=== PATIENT | female | born 1940 | race Caucasian/White ===

== ENCOUNTER → 2017-01-04 | Outpatient (CLI) | payer MEDICARE, OTHER ==
--- NOTE | 2017-01-08 11:36 | MM ---
Reason for exam: screening (asymptomatic). Last mammogram was performed 1 year and 1 month ago. History: Patient is postmenopausal. Took hormonal contraceptives for 12 years. Took progesterone for 5 years. Physical Findings: A clinical breast exam by your physician is recommended on an annual basis and results should be correlated with mammographic findings. MG 3D Screening Mammo W/Cad Bilateral CC and MLO view(s) were taken. Prior study comparison: December 01, 2015, bilateral MG screening mammo w CAD. November 29, 2014, bilateral MG screening mammo w CAD. The breast tissue is heterogeneously dense. This may lower the sensitivity of mammography. Finding: There are few typically benign round calcifications in both breasts. There is no discrete abnormality. ASSESSMENT: Benign, BI-RAD 2 RECOMMENDATION: Routine screening mammogram of both breasts in 1 year.
== END ==
LOC: RADMAMWWP 07:32
PROVIDERS: ATTEND Family Medicine
DX: Z12.31 Encounter for screening mammogram for malignant neoplasm of breast (principal)
CPT/HCPCS: 77063; G0202

== ENCOUNTER → 2017-06-14 | Outpatient (CLI) | payer MEDICARE, OTHER ==
[2017-06-14 11:03] LABS: Basophils % (A) 1 %; Eosinophils # (A) 0.2 k/uL (0-0.7); Eosinophils % (A) 2 %; HCT 39.5 % (34.0-46.0); HGB 13.2 gm/dL (11.4-16.0); Lymphocytes # (A) 2.2 k/uL (1.0-4.8); Lymphocytes % (A) 28 %; MCH 29.4 pg (25.0-35.0); MCHC 33.4 g/dL (31.0-37.0); MCV 87.8 fL (80.0-100.0); Mean Platelet Volume 7.8; Monocytes # (A) 0.4 k/uL (0-1.0); Monocytes % (A) 5 %; Neutrophils # (A) 4.8 k/uL (1.3-7.7); Neutrophils % (A) 63 %; Platelet Count 346 k/uL (150-450); RDW 13.2 % (11.5-15.5); WBC 7.7 k/uL (3.8-10.6)
[2017-06-14 11:09] LABS: Calcium 9.8 mg/dL (8.4-10.2); Potassium 4.8 mmol/L (3.5-5.1)
== END | disposition home or self-care (01) ==
LOC: LABWHC1 09:54
PROVIDERS: ATTEND Family Medicine
DX: I10 Essential (primary) hypertension (principal)
CPT/HCPCS: 36415; 80048; 85025

== ENCOUNTER → 2017-06-25 | Outpatient (CLI) | payer MEDICARE, OTHER | END | disposition home or self-care (01) | LOC: RADUSWWP 10:12 | PROVIDERS: ATTEND Family Medicine | DX: I73.9 Peripheral vascular disease, unspecified (principal) | CPT/HCPCS: 93922 ==

== ENCOUNTER 2017-09-25 17:10 | Emergency (ER) | payer MEDICARE, OTHER ==
[2017-09-25] MEDS ORDERED: SODIUM CHLORIDE 0.9% 1,000 ML IV ONE (19:32)
--- NOTE | 2017-09-25 19:39 | ED ---
Nausea/Vomiting/Diarrhea HPI - General Chief complaint: Nausea/Vomiting/Diarrhea Stated complaint: Diarrhea Time Seen by Provider: 09/25/17 19:13 Source: patient Mode of arrival: ambulatory Limitations: no limitations - History of Present Illness Initial comments: 76-year-old female patient presents to the emergency department today for evaluation of diarrhea and leg pain. Patient states that she has had several episodes of diarrhea daily for the last 3 days. Patient states that she has had generalized abdominal cramping but the pain is worse over the left lower quadrant. She states that whenever she eats or drinks anything she immediately has to have a bowel movement. She denies any hematochezia or melena. Denies any nausea or vomiting. States that she is feeling fatigued and weak. States that she has been having leg pain radiating from her knees down for the last 2 weeks. Patient states that she did previously have similar pain to this did have arterial and venous studies which were negative. States that the pain stopped after stopping amlodipine however started again when she began taking hydrochlorothiazide. Patient states that her blood pressures have been running at normal to high. She denies any recent travel or sick contacts. She denies any recent antibiotic use. Does have a history of diverticulitis but the last episode was many years ago. Has had a cholecystectomy. Patient denies any recent rash, fever, shortness breath, chest pain, back pain, numbness, tingling , dizziness, weakness, hematuria, dysuria, urinary urgency, urinary frequency, headache, visual changes, or any other complaints. - Related Data Home Medications Medication Instructions Recorded Confirmed Aspirin [Adult Low Dose Aspirin EC] 81 mg PO HS 06/13/15 09/25/17 Ca/D3/Mag/Zinc/Candy/Ramirez/Mgbor 1 tab PO DAILY 06/13/15 09/25/17 [Caltrate 600+D3+Min Chew Tab] Lisinopril [Zestril] 20 mg PO BID 06/13/15 09/25/17 Multivit-Min/FA/Lycopen/Lutein 1 tab PO DAILY 06/13/15 09/25/17 [Centrum Silver Tablet] Brimonidine Tartrate/Timolol 1 drop BOTH EYES BID 09/25/17 09/25/17 [Combigan 0.2%-0.5% Eye Drops] Carboxymethylcellulose Sodium 1 - 2 drops BOTH EYES TID PRN 09/25/17 09/25/17 [Refresh Tears] Hydrochlorothiazide 25 mg PO DAILY 09/25/17 09/25/17 Ranitidine HCl 150 mg PO BID PRN 09/25/17 09/25/17 Previous Rx's Medication Instructions Recorded Loperamide [Imodium] 2 mg PO Q6H PRN #8 capsule 09/25/17 Allergies Allergy/AdvReac Type Severity Reaction Status Date / Time Penicillins Allergy Anaphylaxis Verified 09/25/17 19:42 Review of Systems ROS Statement: Those systems with pertinent positive or pertinent negative responses have been documented in the HPI. ROS Other: All systems not noted in ROS Statement are negative. Past Medical History Past Medical History: Hypertension Additional Past Medical History / Comment(s): HX OF POLYPS History of Any Multi-Drug Resistant Organisms: None Reported Past Surgical History: Cholecystectomy, Tubal Ligation Past Anesthesia/Blood Transfusion Reactions: No Reported Reaction Past Psychological History: No Psychological Hx Reported Smoking Status: Former smoker Past Alcohol Use History: None Reported Past Drug Use History: None Reported General Exam Limitations: no limitations General appearance: alert, in no apparent distress, other (This is a well- developed, well-nourished elderly female patient in no acute distress. Vital signs upon presentation are temperature 97.7F, pulse 88, respirations 16, blood pressure 154/79, pulse ox 99% on room air.) Eye exam: Present: normal appearance, PERRL, EOMI. Absent: scleral icterus, conjunctival injection, periorbital swelling ENT exam: Present: normal exam, normal oropharynx, mucous membranes moist Respiratory exam: Present: normal lung sounds bilaterally. Absent: respiratory distress, wheezes, rales, rhonchi, stridor Cardiovascular Exam: Present: regular rate, normal rhythm, normal heart sounds. Absent: systolic murmur, diastolic murmur, rubs, gallop, clicks GI/Abdominal exam: Present: soft, tenderness (Mild left lower quadrant tenderness), normal bowel sounds. Absent: distended, guarding, rebound, rigid Extremities exam: Present: normal inspection, full ROM, normal capillary refill , other (Skin to the lower extremities pink, warm, and dry. Cap refills less than 3 seconds. Pedal posterior tibial pulses are 2+ and equal bilaterally. There is no swelling.). Absent: tenderness, pedal edema, joint swelling, calf tenderness Neurological exam: Present: alert, oriented X3, CN II-XII intact Psychiatric exam: Present: normal affect, normal mood Skin exam: Present: warm, dry, intact, normal color. Absent: rash Course Vital Signs 09/25/17 09/25/17 17:21 22:53 Temperature 97.7 F 98.2 F Pulse Rate 88 80 Respiratory 16 18 Rate Blood Pressure 154/79 171/76 O2 Sat by Pulse 99 96 Oximetry Medical Decision Making - Medical Decision Making 76-year-old female patient presents to emergency department today for evaluation of diarrhea 3 days and leg pain. Physical examination does reveal some left lower quadrant abdominal tenderness. Labs reviewed and did show a decreased sodium and chloride also showed elevated BUN at 26 and creatinine at 1.34. Patient was given a liter of normal saline for dehydration. Urinalysis was negative for any acute signs of infection. I did discuss results and findings with the patient. It is felt that she does have a viral enteritis. She will be given a dose of Imodium here in the department to help control her symptoms. She is instructed take these sparingly. She is instructed to increase fluids and start with a bland diet and advance as tolerated. She is instructed follow up with her primary care physician for recheck as soon as possible. Return parameters discussed in detail. She verbalizes understanding and agrees with this plan. - Lab Data Result diagrams: 09/25/17 19:49 09/25/17 19:49 Lab Results 09/25/17 09/25/17 09/25/17 Range/Units 19:49 19:49 21:34 WBC 8.2 (3.8-10.6) k/uL RBC 4.71 (3.80-5.40) m/uL Hgb 13.8 (11.4-16.0) gm/dL Hct 39.6 (34.0-46.0) % MCV 84.2 (80.0-100.0) fL MCH 29.3 (25.0-35.0) pg MCHC 34.8 (31.0-37.0) g/dL RDW 13.2 (11.5-15.5) % Plt Count 382 (150-450) k/uL Neutrophils % 63 % Lymphocytes % 26 % Monocytes % 8 % Eosinophils % 1 % Basophils % 0 % Neutrophils # 5.1 (1.3-7.7) k/uL Lymphocytes # 2.2 (1.0-4.8) k/uL Monocytes # 0.6 (0-1.0) k/uL Eosinophils # 0.1 (0-0.7) k/uL Basophils # 0.0 (0-0.2) k/uL Sodium 132 L (137-145) mmol/L Potassium 4.3 (3.5-5.1) mmol/L Chloride 91 L (98-107) mmol/L Carbon Dioxide 26 (22-30) mmol/L Anion Gap 15 mmol/L BUN 26 H (7-17) mg/dL Creatinine 1.34 H (0.52-1.04) mg/dL Est GFR (CKD-EPI)AfAm 45 (>60 ml/min/1.73 sqM) Est GFR (CKD-EPI)NonAf 39 (>60 ml/min/1.73 sqM) Glucose 106 H (74-99) mg/dL Calcium 9.8 (8.4-10.2) mg/dL Magnesium 1.6 (1.6-2.3) mg/dL Total Bilirubin 0.5 (0.2-1.3) mg/dL AST 32 (14-36) U/L ALT 34 (9-52) U/L Alkaline Phosphatase 91 (38-126) U/L Total Protein 7.5 (6.3-8.2) g/dL Albumin 4.7 (3.5-5.0) g/dL Urine Color Light Yellow Urine Appearance Clear (Clear) Urine pH 5.0 (5.0-8.0) Ur Specific [place] 1.005 (1.001-1.035) Urine Protein Negative (Negative) Urine Glucose (UA) Negative (Negative) Urine Ketones Trace H (Negative) Urine Blood Negative (Negative) Urine Nitrite Negative (Negative) Urine Bilirubin Negative (Negative) Urine Urobilinogen <2.0 (<2.0) mg/dL Ur Leukocyte Esterase Large H (Negative) Urine RBC 1 (0-5) /hpf Urine WBC 32 H (0-5) /hpf Ur Squamous Epith Cells <1 (0-4) /hpf Ur Renal Epithelial Cell <1 (0) /hpf Hyaline Casts 1 (0-2) /lpf Urine Mucus Rare H (None) /hpf - Radiology Data Radiology results: report reviewed, image reviewed CT of the abdomen and pelvis without contrast was obtained given the patient's current renal status. Report was reviewed in its entirety. Impression by Dr. Elizondo shows no evidence of diverticulitis. No sign of acute abdomen and pelvis. Disposition Clinical Impression: Dehydration, Diarrhea, Renal insufficiency Disposition: HOME SELF-CARE Condition: Good Instructions: Dehydration (ED), Chronic Kidney Disease (ED), Acute Diarrhea (ED ) Additional Instructions: Take Imodium as directed. Increase fluids, start with a bland diet and advance as tolerated. Follow-up with your primary care physician as soon as possible. Have your kidney function rechecked. Return here immediately for any new, worsening, or concerning symptoms. Prescriptions: Loperamide [Imodium] 2 mg PO Q6H PRN #8 capsule PRN Reason: Diarrhea Is patient prescribed a controlled substance at d/c from ED?: No Referrals: Ranjit Jessica DO [Primary Care Provider] - 1-2 days Time of Disposition: 22:26
[2017-09-25 20:04] LABS: Basophils % (A) 0 %; Eosinophils # (A) 0.1 k/uL (0-0.7); Eosinophils % (A) 1 %; HCT 39.6 % (34.0-46.0); HGB 13.8 gm/dL (11.4-16.0); Lymphocytes # (A) 2.2 k/uL (1.0-4.8); Lymphocytes % (A) 26 %; MCH 29.3 pg (25.0-35.0); MCHC 34.8 g/dL (31.0-37.0); MCV 84.2 fL (80.0-100.0); Monocytes # (A) 0.6 k/uL (0-1.0); Monocytes % (A) 8 %; Neutrophils # (A) 5.1 k/uL (1.3-7.7); Neutrophils % (A) 63 %; Platelet Count 382 k/uL (150-450); RBC 4.71 m/uL (3.80-5.40); RDW 13.2 % (11.5-15.5); WBC 8.2 k/uL (3.8-10.6)
[2017-09-25 20:10] LABS: Albumin 4.7 g/dL (3.5-5.0); Calcium 9.8 mg/dL (8.4-10.2); Magnesium 1.6 mg/dL (1.6-2.3); Potassium 4.3 mmol/L (3.5-5.1); Total Bilirubin 0.5 mg/dL (0.2-1.3); Total Protein 7.5 g/dL (6.3-8.2)
--- NOTE | 2017-09-25 21:03 | CT ---
EXAMINATION TYPE: CT abdomen pelvis wo con DATE OF EXAM: 09/25/2017 COMPARISON: NONE HISTORY: Diarrhea x 2 1/[address] DLP: 352.2 mGycm Automated exposure control for dose reduction was used. TECHNIQUE: Helical acquisition of images was performed from the lung bases through the pelvis. FINDINGS: The lung bases are clear. There is no pleural effusion. Heart size is normal. There is no pericardial effusion. Liver and spleen appear normal. Bile ducts are not dilated. There are clips from cholecystectomy. The re is no evidence of pancreatic mass. There is no adrenal mass. Kidneys of normal size. There is no h ydronephrosis. Ureters are not dilated. There is no retroperitoneal adenopathy. Bladder distends smoo thly. There are some sigmoid diverticula. There is no evidence of diverticulitis. I see no intestinal wall thickening. There are no dilated loops. There is a mild degenerative first-degree L4-5 spondylo listhesis. I see no bony destructive process. Uterus is anteverted. Appendix is not definitely seen. There is no sign of appendicitis. OTHER: Mild sigmoid diverticulosis. No evidence of diverticulitis. No sign of acute abdomen and pelvi s. IMPRESSION:
[2017-09-25 21:56] LABS: Appearance,Urine Clear (Clear); Bilirubin,Urine Negative (Negative); Blood,Urine Negative (Negative); Color,Urine Light Yellow; Glucose,Urine (UA) Negative (Negative); Hyaline Casts,Urine 1 /lpf (0-2); Ketones,Urine Trace (Negative); Leukocyte Esterase,Urine Large (Negative); Mucus,Urine Rare /hpf; Nitrite,Urine Negative (Negative); Protein,Urine Negative (Negative); RBC,Urine 1 /hpf (0-5); Renal Epithelial Cells,Urine <1 /hpf (0); Specific Gravity,Urine 1.005 (1.001-1.035); Squamous Epithelial Cell,Urine <1 /hpf (0-4); Urobilinogen,Urine <2.0 mg/dL (<2.0); WBC,Urine 32 /hpf (0-5)
[2017-09-25] MEDS ORDERED: LOPERAMIDE 2 MG CAP PO STA (22:24)
[2017-09-25 22:54] VITALS: BP 171/76; PULSE 80; RESP 18; TEMP 98.2
== END 2017-09-25 22:53 | disposition home or self-care (01) ==
LOC: EC 17:10
DX: E86.0 Dehydration (principal); N28.9 Disorder of kidney and ureter, unspecified; R19.7 Diarrhea, unspecified; M79.604 Pain in right leg; M79.605 Pain in left leg; I10 Essential (primary) hypertension; Z90.49 Acquired absence of other specified parts of digestive tract; Z98.51 Tubal ligation status; Z87.891 Personal history of nicotine dependence; Z79.82 Long term (current) use of aspirin; Z79.899 Other long term (current) drug therapy; Z88.0 Allergy status to penicillin; Z87.19 Personal history of other diseases of the digestive system
CPT/HCPCS: 36415; 74176; 80053; 81001; 83735; 85025; 87086; 96360; 99284

== ENCOUNTER → 2017-10-18 | Outpatient (CLI) | payer MEDICARE, OTHER ==
--- NOTE | 2017-10-18 10:38 | XR ---
EXAMINATION TYPE: XR chest 2V DATE OF EXAM: 10/18/2017 COMPARISON: 10/17/2015 HISTORY: Shortness of breath TECHNIQUE: Frontal and lateral views of the chest are obtained. FINDINGS: Scattered senescent parenchymal changes noted. Hyperinflation compatible with COPD. No evidence for infiltrate. No evidence for atelectasis. Heart size is stable. Mediastinal structures are stable and grossly unremarkable. No evidence for hilar prominence. Degenerative changes dorsal spine. IMPRESSION: 1. No evidence for acute pulmonary disease.
== END | disposition home or self-care (01) ==
LOC: RADXRMAIN 10:12
PROVIDERS: ATTEND Family Medicine
DX: R06.00 Dyspnea, unspecified (principal)
CPT/HCPCS: 71046

== ENCOUNTER 2017-10-26 11:53 | Inpatient (IN) | payer MEDICARE, OTHER ==
[2017-10-26] MEDS ORDERED: IPRATROPIUM-ALBUTEROL 3 ML NEB INHALATION STA (12:10)
[2017-10-26 12:52] LABS: Basophils % (A) 0 %; Eosinophils # (A) 0.1 k/uL (0-0.7); Eosinophils % (A) 1 %; HCT 34.7 % (34.0-46.0); HGB 12.2 gm/dL (11.4-16.0); Lymphocytes % (A) 29 %; MCH 29.3 pg (25.0-35.0); MCHC 35.2 g/dL (31.0-37.0); MCV 83.2 fL (80.0-100.0); Monocytes # (A) 0.6 k/uL (0-1.0); Monocytes % (A) 8 %; Neutrophils # (A) 4.2 k/uL (1.3-7.7); Neutrophils % (A) 60 %; Platelet Count 370 k/uL (150-450); RBC 4.17 m/uL (3.80-5.40); RDW 13.2 % (11.5-15.5)
[2017-10-26 13:01] LABS: INR 1.1 (<1.2); Partial Thromboplastin Time 24.3 sec (22.0-30.0); Prothrombin Time 10.4 sec (9.0-12.0)
[2017-10-26 13:02] LABS: Albumin 4.4 g/dL (3.5-5.0); Calcium 9.3 mg/dL (8.4-10.2); Magnesium 1.7 mg/dL (1.6-2.3); Potassium 4.3 mmol/L (3.5-5.1); Total Bilirubin 0.4 mg/dL (0.2-1.3); Total Protein 6.7 g/dL (6.3-8.2)
[2017-10-26] MEDS ORDERED: SODIUM CHLORIDE 0.9% 1,000 ML IV STA ×2 (13:03)
[2017-10-26 13:14] LABS: Creatine Kinase 181 U/L (30-135)
[2017-10-26 13:27] LABS: Creatine Kinase MB 2.4 ng/mL (0.0-2.4); Troponin I <0.012 ng/mL (0.000-0.034)
--- NOTE | 2017-10-26 13:49 | ED ---
General Adult HPI - General Chief complaint: Shortness of Breath Stated complaint: Difficulty Breathing Time Seen by Provider: 10/26/17 12:09 Source: patient, RN notes reviewed, old records reviewed Mode of arrival: ambulatory Limitations: no limitations - History of Present Illness Initial comments: This is a 76-year-old female the ER for evaluation. Patient has multiple complaints all surrounding shortness of breath fatigue and inability to eat or drink. Patient is a 10 pound weight loss. Patient has history of high blood pressure but none really any other specific medical history. Patient has no new medications. She was a viral infection that suicide for some time. Patient states that infection is now resolved. She denies any diarrheal recently a diarrheal illness. Patient states her main complaint is inability to breathe, inability to breathe in length that flat and decreased activity level during events or activities. Patient denies any recurrent fevers currently no travel history or sick contacts - Related Data Home Medications Medication Instructions Recorded Confirmed Aspirin [Adult Low Dose Aspirin EC] 81 mg PO HS 06/13/15 09/25/17 Ca/D3/Mag/Zinc/Candy/Ramirez/Mgbor 1 tab PO DAILY 06/13/15 09/25/17 [Caltrate 600+D3+Min Chew Tab] Lisinopril [Zestril] 20 mg PO BID 06/13/15 09/25/17 Multivit-Min/FA/Lycopen/Lutein 1 tab PO DAILY 06/13/15 09/25/17 [Centrum Silver Tablet] Brimonidine Tartrate/Timolol 1 drop BOTH EYES BID 09/25/17 09/25/17 [Combigan 0.2%-0.5% Eye Drops] Carboxymethylcellulose Sodium 1 - 2 drops BOTH EYES TID PRN 09/25/17 09/25/17 [Refresh Tears] Hydrochlorothiazide 25 mg PO DAILY 09/25/17 09/25/17 Ranitidine HCl 150 mg PO BID PRN 09/25/17 09/25/17 Previous Rx's Medication Instructions Recorded Loperamide [Imodium] 2 mg PO Q6H PRN #8 capsule 09/25/17 Allergies Allergy/AdvReac Type Severity Reaction Status Date / Time Penicillins Allergy Anaphylaxis Verified 10/26/17 12:01 Review of Systems ROS Statement: Those systems with pertinent positive or pertinent negative responses have been documented in the HPI. ROS Other: All systems not noted in ROS Statement are negative. Past Medical History Past Medical History: Hypertension Additional Past Medical History / Comment(s): HX OF POLYPS History of Any Multi-Drug Resistant Organisms: None Reported Past Surgical History: Cholecystectomy, Tubal Ligation Past Anesthesia/Blood Transfusion Reactions: No Reported Reaction Past Psychological History: No Psychological Hx Reported Smoking Status: Former smoker Past Alcohol Use History: None Reported Past Drug Use History: None Reported General Exam Limitations: no limitations General appearance: alert, in no apparent distress Head exam: Present: atraumatic, normocephalic, normal inspection Eye exam: Present: normal appearance, PERRL, EOMI. Absent: scleral icterus, conjunctival injection, periorbital swelling ENT exam: Present: normal exam, mucous membranes moist Neck exam: Present: normal inspection. Absent: tenderness, meningismus, lymphadenopathy Respiratory exam: Present: normal lung sounds bilaterally. Absent: respiratory distress, wheezes, rales, rhonchi, stridor Cardiovascular Exam: Present: regular rate, normal rhythm, normal heart sounds. Absent: systolic murmur, diastolic murmur, rubs, gallop, clicks GI/Abdominal exam: Present: soft, normal bowel sounds. Absent: distended, tenderness, guarding, rebound, rigid Extremities exam: Present: normal inspection, full ROM, normal capillary refill. Absent: tenderness, pedal edema, joint swelling, calf tenderness Back exam: Present: normal inspection Neurological exam: Present: alert, oriented X3, CN II-XII intact Psychiatric exam: Present: normal affect, normal mood Skin exam: Present: warm, dry, intact, normal color. Absent: rash Course Vital Signs 10/26/17 10/26/17 10/26/17 11:57 13:30 13:40 Temperature 97.6 F Pulse Rate 76 73 69 Respiratory 18 Rate Blood Pressure 149/74 O2 Sat by Pulse 100 Oximetry 10/26/17 14:51 Temperature Pulse Rate 76 Respiratory 16 Rate Blood Pressure 159/70 O2 Sat by Pulse 100 Oximetry - Reevaluation(s) Reevaluation #1: 10/26/17 15:24 Significant improvement here in the emergency room EKG Findings - EKG Comments: EKG Findings:: EKG shows normal sinus rhythm rate of 69, [place] 04/13/1982, QRS 70, QTc 420 Medical Decision Making - Medical Decision Making 76 female the ER for eversion multiple nonspecific complaints, patient is hyponatremic sodium 121, weak and short of breath. Likely just malnutrition. Patient will be admitted for IV resuscitation and further evaluation, - Lab Data Result diagrams: 10/26/17 12:43 10/26/17 12:43 Lab Results 10/26/17 10/26/17 10/26/17 Range/Units 12:43 12:43 12:43 WBC 7.0 (3.8-10.6) k/uL RBC 4.17 (3.80-5.40) m/uL Hgb 12.2 (11.4-16.0) gm/dL Hct 34.7 (34.0-46.0) % MCV 83.2 (80.0-100.0) fL MCH 29.3 (25.0-35.0) pg MCHC 35.2 (31.0-37.0) g/dL RDW 13.2 (11.5-15.5) % Plt Count 370 (150-450) k/uL Neutrophils % 60 % Lymphocytes % 29 % Monocytes % 8 % Eosinophils % 1 % Basophils % 0 % Neutrophils # 4.2 (1.3-7.7) k/uL Lymphocytes # 2.0 (1.0-4.8) k/uL Monocytes # 0.6 (0-1.0) k/uL Eosinophils # 0.1 (0-0.7) k/uL Basophils # 0.0 (0-0.2) k/uL PT (9.0-12.0) sec INR (<1.2) APTT (22.0-30.0) sec Sodium 121 L (137-145) mmol/L Potassium 4.3 (3.5-5.1) mmol/L Chloride 84 L (98-107) mmol/L Carbon Dioxide 25 (22-30) mmol/L Anion Gap 12 mmol/L BUN 53 H (7-17) mg/dL Creatinine 1.23 H (0.52-1.04) mg/dL Est GFR (CKD-EPI)AfAm 50 (>60 ml/min/1.73 sqM) Est GFR (CKD-EPI)NonAf 43 (>60 ml/min/1.73 sqM) Glucose 94 (74-99) mg/dL Calcium 9.3 (8.4-10.2) mg/dL Magnesium 1.7 (1.6-2.3) mg/dL Total Bilirubin 0.4 (0.2-1.3) mg/dL AST 34 (14-36) U/L ALT 30 (9-52) U/L Alkaline Phosphatase 72 (38-126) U/L Total Creatine Kinase 181 H (30-135) U/L CK-MB (CK-2) 2.4 (0.0-2.4) ng/mL CK-MB (CK-2) Rel Index 1.3 Troponin I <0.012 (0.000-0.034) ng/mL NT-Pro-B Natriuret Pep pg/mL Total Protein 6.7 (6.3-8.2) g/dL Albumin 4.4 (3.5-5.0) g/dL 10/26/17 10/26/17 Range/Units 12:43 12:43 WBC (3.8-10.6) k/uL RBC (3.80-5.40) m/uL Hgb (11.4-16.0) gm/dL Hct (34.0-46.0) % MCV (80.0-100.0) fL MCH (25.0-35.0) pg MCHC (31.0-37.0) g/dL RDW (11.5-15.5) % Plt Count (150-450) k/uL Neutrophils % % Lymphocytes % % Monocytes % % Eosinophils % % Basophils % % Neutrophils # (1.3-7.7) k/uL Lymphocytes # (1.0-4.8) k/uL Monocytes # (0-1.0) k/uL Eosinophils # (0-0.7) k/uL Basophils # (0-0.2) k/uL PT 10.4 (9.0-12.0) sec INR 1.1 (<1.2) APTT 24.3 (22.0-30.0) sec Sodium (137-145) mmol/L Potassium (3.5-5.1) mmol/L Chloride (98-107) mmol/L Carbon Dioxide (22-30) mmol/L Anion Gap mmol/L BUN (7-17) mg/dL Creatinine (0.52-1.04) mg/dL Est GFR (CKD-EPI)AfAm (>60 ml/min/1.73 sqM) Est GFR (CKD-EPI)NonAf (>60 ml/min/1.73 sqM) Glucose (74-99) mg/dL Calcium (8.4-10.2) mg/dL Magnesium (1.6-2.3) mg/dL Total Bilirubin (0.2-1.3) mg/dL AST (14-36) U/L ALT (9-52) U/L Alkaline Phosphatase (38-126) U/L Total Creatine Kinase (30-135) U/L CK-MB (CK-2) (0.0-2.4) ng/mL CK-MB (CK-2) Rel Index Troponin I (0.000-0.034) ng/mL NT-Pro-B Natriuret Pep 111 pg/mL Total Protein (6.3-8.2) g/dL Albumin (3.5-5.0) g/dL - Radiology Data Radiology results: report reviewed (CT soft tissue neck CT chest negative for acute disease), image reviewed Disposition Clinical Impression: Hyponatremia, Weakness Disposition: ADMITTED IP TO THIS [facility] Condition: Fair Is patient prescribed a controlled substance at d/c from ED?: No Referrals: Ranjit Jessica DO [Primary Care Provider] - 1-2 days
[2017-10-26 14:52] VITALS: RESP 16
--- NOTE | 2017-10-26 14:57 | CT ---
EXAMINATION TYPE: CT angio chest DATE OF EXAM: 10/26/2017 2:41 PM COMPARISON: HISTORY: SOB, can not lay flat or she chokes CT DLP: 371.1 (soft tissue neck and CTA chest) mGycm Automated exposure control for dose reduction was used. CONTRAST: CTA scan of the thorax is performed with IV Contrast, patient injected with 80 mL of Isovue 370, pulm onary embolism protocol. . FINDINGS: LUNGS: The lungs are mildly hyperexpanded without acute parenchymal infiltrate, pneumothorax or pleur al effusions. There is peribronchial thickening. The tracheobronchial tree is patent. MEDIASTINUM: There is suboptimal enhancement of the pulmonary artery and its branches, there is no CT evidence of filling defects within the main pulmonary artery. There are no greater than 1 cm hilar or mediastinal lymph nodes. No pericardial effusion is seen. OTHER: No evidence of axillary or mediastinal adenopathy. IMPRESSION: SUBOPTIMAL OPACIFICATION OF THE PULMONARY ARTERIES. NO EVIDENCE OF MAJOR FILLING DEFECTS WITHIN THE M AIN PULMONARY ARTERY. BOTH LUNGS ARE HYPEREXPANDED WITH PERIBRONCHIAL THICKENING WITHOUT PNEUMOTHORAX OR PLEURAL EFFUSIONS. NO DEFINITE ACUTE PARENCHYMAL INFILTRATE. THORACIC AORTA IS OF NORMAL SIZE.
--- NOTE | 2017-10-26 15:13 | CT ---
EXAMINATION TYPE: CT soft tissue neck w con DATE OF EXAM: 10/26/2017 3:02 PM COMPARISON: HISTORY: SOB, chokes when she lays flat CT DLP: 371.1 (soft tissue neck and CTA chest) mGycm Automated exposure control for dose reduction was used. CONTRAST: CT scan of the neck is performed following with IV Contrast, patient injected with 80 mL of Isovue 37 0. Axial images are obtained, coronal and sagittal reformatted images are reviewed. FINDINGS: Airway: No gross abnormality seen. Parotid/submandibular glands: No gross abnormality seen. Carotid/Vascular Structures: Patency of both carotid bifurcations with moderate tortuosity of the cer vical portion of both internal carotid arteries. Osseous Structures: Minimal loss of height and intervertebral disc spaces of the cervical spine. No c ompression fracture or focal bony destruction.. Other: Multiple artifacts from dental fillings. No definite cervical adenopathy. Epiglottis is of nor mal size. No intracranial mass. Visualized portions of the lung apices are clear. IMPRESSION: No evidence of adenopathy or airway obstruction. Moderate proportions of the internal ca rotid arteries bilaterally. Patency of both carotid bifurcations. Loss of height at the intervertebra l disc spaces of the cervical spine with osteoarthritic changes. No compression fractures or focal jimmy ne destruction.
[2017-10-26] MEDS ORDERED: SODIUM CHLORIDE 0.9% 1,000 ML IV ONE (15:22)
[2017-10-26] MEDS ORDERED: SODIUM CHLORIDE 0.9% 500 ML IV STA (15:22)
[2017-10-26 16:49] VITALS: BMI 26.4
[2017-10-26] MEDS ORDERED: FAMOTIDINE 20 MG TAB PO PRN (18:20)
[2017-10-26] MEDS ORDERED: ARTIFICIAL TEARS-HYPROMELLOSE DROPS 15 ML BTL BOTH EYES PRN (18:20)
[2017-10-26] MEDS: SODIUM CHLORIDE 0.9% 1,000 ML IV SCH (18:52)
--- NOTE | 2017-10-26 18:53 | P.HPIM ---
History of Present Illness 71-year-old female poor historian not exactly sure why she came to the hospital she is she is fatigued because of which she came to the hospital sometimes she says she is started about the pressure came to the hospital. Patient has a recent prolonged history of having diarrhea for which patient underwent extensive elevation at CAT scan of the abdomen which was essentially within normal limits patient was subsequently discharged home, her primary care patient advance her diet from liquid diet to soft diet patient is able to tolerate the diet patient has been tired lately because of which patient came to ER patient apparently was complaining of shortness of breath all the workup for shortness of breath is essentially negative. Patient denied any fever chills patient had any present diarrhea patient is found to be hyponatremic with the serum sodium of 121 and acute renal failure. Patient is on hydro- chlorothiazide and also lisinopril at home both of which will be held. Review of Systems REVIEW OF SYSTEMS: CONSTITUTIONAL: No fever, no malaise, HEENT: No recent visual problems or hearing problems. Denied any sore throat. CARDIOVASCULAR: No chest pain, orthopnea, PND, no palpitations, no syncope. PULMONARY:no cough, no hemoptysis. GASTROINTESTINAL: No diarrhea, no nausea, no vomiting, no abdominal pain. Normoactive bowel sounds. NEUROLOGICAL: No headaches, no weakness, no numbness. HEMATOLOGICAL: Denies any bleeding or petechiae. GENITOURINARY: Denies any burning micturition, frequency, or urgency. MUSCULOSKELETAL/RHEUMATOLOGICAL: Denies any joint pain, swelling, or any muscle pain. ENDOCRINE: Denies any polyuria or polydipsia. The rest of the 14-point review of systems is negative. Past Medical History Past Medical History: Hypertension Additional Past Medical History / Comment(s): HX OF POLYPS History of Any Multi-Drug Resistant Organisms: None Reported Past Surgical History: Cholecystectomy, Tubal Ligation Past Anesthesia/Blood Transfusion Reactions: No Reported Reaction Past Psychological History: No Psychological Hx Reported Smoking Status: Former smoker Past Alcohol Use History: None Reported Additional Past Alcohol Use History / Comment(s): SMOKED FOR LESS THAN 2 YRS IN 20'S, LESS THAN 1PPD Past Drug Use History: None Reported - Past Family History Father Additional Family Medical History / Comment(s): osteoporosis Mother Family Medical History: CVA/TIA Medications and Allergies Home Medications Medication Instructions Recorded Confirmed Type Aspirin [Adult Low Dose Aspirin EC] 81 mg PO HS 06/13/15 10/26/17 History Ca/D3/Mag/Zinc/Candy/Ramirez/Mgbor 1 tab PO DAILY 06/13/15 10/26/17 History [Caltrate 600+D3+Min Chew Tab] Lisinopril [Zestril] 20 mg PO BID 06/13/15 10/26/17 History Multivit-Min/FA/Lycopen/Lutein 1 tab PO DAILY 06/13/15 10/26/17 History [Centrum Silver Tablet] Brimonidine Tartrate/Timolol 1 drop BOTH EYES BID 09/25/17 10/26/17 History [Combigan 0.2%-0.5% Eye Drops] Carboxymethylcellulose Sodium 1 - 2 drops BOTH EYES TID PRN 09/25/17 10/26/17 History [Refresh Tears] Hydrochlorothiazide 25 mg PO DAILY 09/25/17 10/26/17 History Ranitidine HCl 150 mg PO BID PRN 09/25/17 10/26/17 History Allergies Allergy/AdvReac Type Severity Reaction Status Date / Time Penicillins Allergy Anaphylaxis Verified 10/26/17 16:54 Physical Exam Vitals: Vital Signs Temp Pulse Resp BP Pulse Ox 10/26/17 16:16 97.9 F 10/26/17 15:27 86 16 139/70 98 10/26/17 14:51 76 16 159/70 100 10/26/17 13:40 69 10/26/17 13:30 73 10/26/17 11:57 97.6 F 76 18 149/74 100 Intake and Output 10/26/17 10/26/17 10/26/17 06:59 14:59 22:59 Other: Weight 64.229 kg 63.6 kg PHYSICAL EXAMINATION: GENERAL: The patient is alert and oriented x3, not in any acute distress. Well developed, well nourished. HEENT: Pupils are round and equally reacting to light. EOMI. No scleral icterus. No conjunctival pallor. Normocephalic, atraumatic. No pharyngeal erythema. No thyromegaly. CARDIOVASCULAR: S1 and S2 present. No murmurs, rubs, or gallops. PULMONARY: Chest is clear to auscultation, no wheezing or crackles. ABDOMEN: Soft, nontender, nondistended, normoactive bowel sounds. No palpable organomegaly. MUSCULOSKELETAL: No joint swelling or deformity. EXTREMITIES: No cyanosis, clubbing, or pedal edema. NEUROLOGICAL: Gross neurological examination did not reveal any focal deficits. SKIN: No rashes. Results CBC & Chem 7: 10/26/17 12:43 10/26/17 12:43 Labs: Abnormal Lab Results - Last 24 Hours (Table) 10/26/17 10/26/17 Range/Units 12:43 12:43 Sodium 121 L (137-145) mmol/L Chloride 84 L (98-107) mmol/L BUN 53 H (7-17) mg/dL Creatinine 1.23 H (0.52-1.04) mg/dL Total Creatine Kinase 181 H (30-135) U/L Thrombosis Risk Factor Assmnt - Choose All That Apply Any of the Below Risk Factors Present?: Yes Other Risk Factors: Yes Each Risk Factor Represents 2 Points: Age 61-74 years Other congenital or acquired thrombophilia - If yes, enter type in comment: Yes Thrombosis Risk Factor Assessment Total Risk Factor Score: 2 Thrombosis Risk Factor Assessment Level: Low Risk Assessment and Plan Plan: -Hyponatremia: Hypovolemic hyponatremia from recent diarrhea along with hydrocodone thiazide adequately presented will be held and patient continued on IV fluids -Acute renal failure: Hold a slight lisinopril IV fluids -Generalized headache may be related to dehydration intravascularly depletion and acute renal failure and hyponatremia I will obtain TSH levels -Shortness of breath ruled out pneumonia etiology is unknown probably psychological -Hypertension cardiac diet hold off on antidepressant medications for above- mentioned reasons temporaryly
[2017-10-26] MEDS: BRIMONIDINE TARTRATE 0.2% DROPS 5 ML BTL BOTH EYES SCH (20:56)
[2017-10-26] MEDS: TIMOLOL 0.5% OPHTH DROPS 5 ML BTL BOTH EYES SCH (20:56)
[2017-10-26] MEDS ORDERED: ASPIRIN 81 MG PO SCH (21:00)
[2017-10-27] MEDS: SODIUM CHLORIDE 0.9% 1,000 ML IV SCH (05:48)
[2017-10-27 06:29] VITALS: PULSE 69; TEMP 97.1
[2017-10-27 07:34] VITALS: BP 187/68
[2017-10-27] MEDS ORDERED: ENOXAPARIN 40 MG/0.4 ML SYRINGE SQ SCH (09:00)
[2017-10-27] MEDS ORDERED: LISINOPRIL 20 MG TAB PO SCH (09:00)
[2017-10-27] MEDS ORDERED: HYDROCHLOROTHIAZIDE 25 MG TAB PO SCH (09:00)
[2017-10-27] MEDS: BRIMONIDINE TARTRATE 0.2% DROPS 5 ML BTL BOTH EYES SCH (09:21)
[2017-10-27] MEDS: TIMOLOL 0.5% OPHTH DROPS 5 ML BTL BOTH EYES SCH (09:21)
[2017-10-27 09:28] LABS: Potassium 4.4 mmol/L (3.5-5.1)
--- NOTE | 2017-10-27 11:44 | P.DS ---
Providers Date of admission: 10/26/17 15:23 Attending physician: Amanda Ulloa Primary care physician: Ranjit [facility] Course: 77-year-old female was admitted secondary to hyponatremia which improved with IV fluids and hyponatremia secondary to hydrochlorothiazide which was discontinued. Patient also had acute renal failure improved with discontinuation of hydrochlorothiazide and lisinopril. Creatinine improved to 0.8 and patient will be discharged home on lisinopril 20 mg daily and patient is asked to check the blood pressure at home. PHYSICAL EXAMINATION: GENERAL: The patient is alert and oriented x3, not in any acute distress. Well developed, well nourished. HEENT: Pupils are round and equally reacting to light. EOMI. No scleral icterus. No conjunctival pallor. Normocephalic, atraumatic. No pharyngeal erythema. No thyromegaly. CARDIOVASCULAR: S1 and S2 present. No murmurs, rubs, or gallops. PULMONARY: Chest is clear to auscultation, no wheezing or crackles. ABDOMEN: Soft, nontender, nondistended, normoactive bowel sounds. No palpable organomegaly. MUSCULOSKELETAL: No joint swelling or deformity. EXTREMITIES: No cyanosis, clubbing, or pedal edema. NEUROLOGICAL: Gross neurological examination did not reveal any focal deficits. SKIN: No rashes. For rest of the chronic medical problems and hospitalization course please defer to my dictation of HPI Patient Condition at Discharge: Fair Plan - Discharge Summary New Discharge Prescriptions: Continue Multivit-Min/FA/Lycopen/Lutein [Centrum Silver Tablet] 1 tab PO DAILY Ca/D3/Mag/Zinc/Candy/Ramirez/Mgbor [Caltrate 600+D3+Min Chew Tab] 1 tab PO DAILY Aspirin [Adult Low Dose Aspirin EC] 81 mg PO HS Ranitidine HCl 150 mg PO BID PRN PRN Reason: Heartburn Brimonidine Tartrate/Timolol [Combigan 0.2%-0.5% Eye Drops] 1 drop BOTH EYES BID Carboxymethylcellulose Sodium [Refresh Tears] 1 - 2 drops BOTH EYES TID PRN PRN Reason: Dry Eye(S) Changed Lisinopril [Zestril] 20 mg PO DAILY #0 Discontinued Hydrochlorothiazide 25 mg PO DAILY Discharge Medication List Aspirin [Adult Low Dose Aspirin EC] 81 mg PO HS 06/13/15 [History] Ca/D3/Mag/Zinc/Candy/Ramirez/Mgbor [Caltrate 600+D3+Min Chew Tab] 1 tab PO DAILY 10/21 [History] Multivit-Min/FA/Lycopen/Lutein [Centrum Silver Tablet] 1 tab PO DAILY 06/13/15 [ History] Brimonidine Tartrate/Timolol [Combigan 0.2%-0.5% Eye Drops] 1 drop BOTH EYES BID 09/25/17 [History] Carboxymethylcellulose Sodium [Refresh Tears] 1 - 2 drops BOTH EYES TID PRN [History] Ranitidine HCl 150 mg PO BID PRN 09/25/17 [History] Lisinopril [Zestril] 20 mg PO DAILY #0 10/27/17 [Rx] Follow up Appointment(s)/Referral(s): Ranjit Jessica DO [Primary Care Provider] - 3 Days Discharge Disposition: HOME SELF-CARE
== END 2017-10-27 12:26 | disposition home or self-care (01) | DRG 641 ==
LOC: EC 11:53 → 4MS4W 15:23
PROVIDERS: ADMIT Hospitalist; ATTEND Hospitalist
DX: E87.1 Hypo-osmolality and hyponatremia (principal); N17.9 Acute kidney failure, unspecified; T50.2X5A Adverse effect of carbonic-anhydrase inhibitors, benzothiadiazides and other diuretics, initial encounter; I10 Essential (primary) hypertension; Z79.82 Long term (current) use of aspirin; Z79.899 Other long term (current) drug therapy; Z82.62 Family history of osteoporosis; Z87.891 Personal history of nicotine dependence; E86.0 Dehydration; R51 Headache; Z86.010 Personal history of colon polyps; Z82.3 Family history of stroke; R06.02 Shortness of breath; Z88.0 Allergy status to penicillin
CPT/HCPCS: 36415; 70491; 71275; 80048; 80053; 82550; 82553; 83735; 83880; 84443; 84484; 85025; 85610; 85730; 93005; 94640; 96360; 96361; 99285

== ENCOUNTER → 2017-11-28 | Outpatient (CLI) | payer MEDICARE, OTHER ==
[2017-11-28 13:41] VITALS: BMI 26.0
== END | disposition home or self-care (01) ==
LOC: MNTWWP 13:04
PROVIDERS: ATTEND Family Medicine
DX: E87.1 Hypo-osmolality and hyponatremia (principal)
CPT/HCPCS: 97802

== ENCOUNTER → 2018-01-17 | Outpatient (CLI) | payer MEDICARE, OTHER ==
[2018-01-17 09:26] LABS: Potassium 4.6 mmol/L (3.5-5.1)
--- NOTE | 2018-01-20 11:28 | MM ---
Reason for exam: screening (asymptomatic). Last mammogram was performed 1 year ago. History: Patient is postmenopausal. Took hormonal contraceptives for 12 years. Took progesterone for 5 years. Physical Findings: A clinical breast exam by your physician is recommended on an annual basis and results should be correlated with mammographic findings. MG 3D Screening Mammo W/Cad Bilateral CC and MLO view(s) were taken. Prior study comparison: January 04, 2017, bilateral MG 3d screening mammo w/cad. December 01, 2015, bilateral MG screening mammo w CAD. The breast tissue is heterogeneously dense. This may lower the sensitivity of mammography. There are benign appearing round calcifications bilaterally, greater in the left breast. There is no discrete abnormality. ASSESSMENT: Benign, BI-RAD 2 RECOMMENDATION: Routine screening mammogram of both breasts in 1 year.
== END | disposition home or self-care (01) ==
LOC: RADMAMWWP 07:16
PROVIDERS: ATTEND Family Medicine
DX: Z12.31 Encounter for screening mammogram for malignant neoplasm of breast (principal)
CPT/HCPCS: 36415; 77063; 77067; 80051

== ENCOUNTER → 2018-05-01 | Outpatient (CLI) | payer MEDICARE, OTHER ==
[2018-05-01 18:14] LABS: Anion Gap 7.5 mmol/L (4.00-12.00); Carbon Dioxide 29.5 mmol/L (21.6-31.8); Potassium 5.2 mmol/L (3.5-5.5)
== END | disposition home or self-care (01) ==
LOC: LABWHC1 11:30
PROVIDERS: ATTEND Family Medicine
DX: E87.1 Hypo-osmolality and hyponatremia (principal)
CPT/HCPCS: 36415; 80051

== ENCOUNTER → 2018-07-24 | Outpatient (CLI) | payer MEDICARE, OTHER ==
--- NOTE | 2018-07-24 13:28 | BD ---
EXAMINATION TYPE: Axial Bone Density DATE OF EXAM: 07/24/2018 COMPARISON: DEXA bone scan 2015 CLINICAL HISTORY: Disorder of bone density per order. Height: 61 Weight: 145.9 FRAX RISK QUESTIONS: Alcohol (3 or more units per day): no Family History (Parent hip fracture): no Glucocorticoids (More than 3mos): no (Ex: prednisone, prednisolone, methylprednisolone, dexamethasone, and hydrocortisone). History of Fracture in Adulthood: no Secondary Osteoporosis: 1. Type 1 Diabetes: no 2. Hyperthyroidism: no 3. Menopause before 45: no 4. Malnutrition: no 5. Chronic liver disease: no Rheumatoid Arthritis: no Current Tobacco Use: no RISK FACTORS HISTORY OF: Family History of Osteoporosis: yes Active: sometimes Diet low in dairy products/other sources of calcium: no Postmenopausal woman: age 51 Lost more than 2 inches in height since high school: no MEDICATIONS: lisinopril, anxiety/depression meds, eye meds, aspirin, vitamins , Caltrate Additional History: EXAM MEASUREMENTS: Bone mineral densitometry was performed using the [employer] System. Bone mineral density as measured about the Lumbar spine is: ----- L1-L4(G/cm2): 0.962 T Score Values are as follows: ----- L2: -2.1 ----- L3: -1.3 ----- L4: -2.0 ----- L1-L4: -1.8 Bone mineral density has: decreased -4.0 % since study of: 06.10.2015 Bone mineral density about the R hip (g/cm2): 0.801 Bone mineral density about the L hip (g/cm2): 0.785 T Score values are as follows: -----R Neck: -1.7 -----L Neck: -1.8 -----R Total: -1.1 -----L Total: -1.2 Bone mineral density has: decreased-3.4 % since study of: 06.10.2015 IMPRESSION: Osteopenia (T Score between -2.5 and -1) persists. Bone density decreased or diminished from prior. There is slightly increased risk of fracture and the patient may be considered for treatment. Re-Screen 2-5 years. NOTE: T-SCORE=SD OF THE YOUNG ADULT MEAN.
== END ==
LOC: RADBDWWP 10:55
PROVIDERS: ATTEND Family Medicine
DX: M85.80 Other specified disorders of bone density and structure, unspecified site (principal)
CPT/HCPCS: 77080

== ENCOUNTER → 2019-01-19 | Outpatient (CLI) | payer MEDICARE, OTHER ==
--- NOTE | 2019-01-19 13:15 | MM ---
Reason for exam: screening (asymptomatic). Last mammogram was performed 1 year ago. History: Patient is postmenopausal. Took hormonal contraceptives for 12 years. Took progesterone for 5 years. Physical Findings: A clinical breast exam by your physician is recommended on an annual basis and results should be correlated with mammographic findings. MG 3D Screening Mammo W/Cad Bilateral CC and MLO view(s) were taken. Prior study comparison: January 17, 2018, bilateral MG 3d screening mammo w/cad. January 04, 2017, bilateral MG 3d screening mammo w/cad. The breast tissue is heterogeneously dense. This may lower the sensitivity of mammography. Benign appearing bilateral calcifications. No suspicious abnormality. No significant changes when compared with prior studies. ASSESSMENT: Benign, BI-RAD 2 RECOMMENDATION: Routine screening mammogram of both breasts in 1 year.
== END ==
LOC: RADMAMWWP 07:18
PROVIDERS: ATTEND Family Medicine
DX: Z12.31 Encounter for screening mammogram for malignant neoplasm of breast (principal)
CPT/HCPCS: 77063; 77067

== ENCOUNTER → 2019-03-26 | Outpatient (CLI) | payer MEDICARE, OTHER ==
--- NOTE | 2019-03-26 11:23 | XR ---
EXAMINATION TYPE: XR humerus LT DATE OF EXAM: 03/26/2019 CLINICAL HISTORY: Injury since was given shot in arm January 26. TECHNIQUE: Two views of the left humerus are obtained. COMPARISON: None. FINDINGS: There is no acute fracture or dislocation seen in the left humerus. The visualized portio n of shoulder and elbow joints appear within normal limits. Overlying clothing or blanket material is seen without suspicious linear radiodense body. IMPRESSION: As above.
== END | disposition home or self-care (01) ==
LOC: RADXRMAIN 10:29
PROVIDERS: ATTEND Family Medicine
DX: M79.602 Pain in left arm (principal)

== ENCOUNTER → 2019-12-25 | Outpatient (CLI) | payer MEDICARE, OTHER ==
[2019-12-25 19:09] LABS: Anion Gap 9.2 mmol/L (4.00-12.00); Carbon Dioxide 28.8 mmol/L (21.6-31.8); Potassium 4.5 mmol/L (3.5-5.5)
== END | disposition home or self-care (01) ==
LOC: LABWHC1 09:41
PROVIDERS: ATTEND Family Medicine
DX: E87.1 Hypo-osmolality and hyponatremia (principal)
CPT/HCPCS: 36415; 80051

== ENCOUNTER → 2020-12-13 | Outpatient (CLI) | payer MEDICARE, OTHER ==
--- NOTE | 2020-12-13 15:53 | BD ---
EXAMINATION TYPE: Axial Bone Density DATE OF EXAM: 12/13/2020 COMPARISON: NONE CLINICAL HISTORY: Height: 60.5 Weight: 164.8 FRAX RISK QUESTIONS: Alcohol (3 or more units per day): no Family History (Parent hip fracture): no Glucocorticoids (More than 3mos): no (Ex: prednisone, prednisolone, methylprednisolone, dexamethasone, and hydrocortisone). History of Fracture in Adulthood: no Secondary Osteoporosis: 1. Type 1 Diabetes: no 2. Hyperthyroidism: no 3. Menopause before 45: no 4. Malnutrition: no 5. Chronic liver disease: no Rheumatoid Arthritis: no Current Tobacco Use: no RISK FACTORS HISTORY OF: Surgery to Spine/Hip(right/left)/Wrist (right/left): no Family History of Osteoporosis: yes Active: yes Diet low in dairy products/other sources of calcium: no Postmenopausal woman: age 51 Lost more than 2 inches in height since high school: no MEDICATIONS: lisinopril, amlodipine, citalopram Additional History: EXAM MEASUREMENTS: Bone mineral densitometry was performed using the [employer] System. Bone mineral density as measured about the Lumbar spine is: ----- L1-L4(G/cm2): 0.990 T Score Values are as follows: ----- L2: -2.5 ----- L3: -1.4 ----- L4: -1.1 ----- L1-L4: -1.6 Bone mineral density has: increased 2.4 % since study of: 07.24.2018 Bone mineral density about the R hip (g/cm2): 0.820 Bone mineral density about the L hip (g/cm2): 0.786 T Score values are as follows: -----R Neck: -1.6 -----L Neck: -1.8 -----R Total: -0.9 -----L Total: -0.9 Bone mineral density has: increased 3.5 % since study of: 07.24.2018 IMPRESSION: Osteopenia (T Score between -2.5 and -1). There is slightly increased risk of fracture and the patient may be considered for treatment. Re-Screen 2-5 years. NOTE: T-SCORE=SD OF THE YOUNG ADULT MEAN.
== END | disposition home or self-care (01) ==
LOC: RADBDWWP 08:31
PROVIDERS: ATTEND Family Medicine
DX: M85.89 Other specified disorders of bone density and structure, multiple sites (principal); Z78.0 Asymptomatic menopausal state
CPT/HCPCS: 77080

== ENCOUNTER → 2021-02-16 | Outpatient (CLI) | payer MEDICARE, OTHER ==
--- NOTE | 2021-02-20 09:46 | MM ---
Reason for exam: screening (asymptomatic). Last mammogram was performed 2 years and 1 month ago. History: Patient is postmenopausal. Took hormonal contraceptives for 12 years. Took progesterone for 5 years. Physical Findings: A clinical breast exam by your physician is recommended on an annual basis and results should be correlated with mammographic findings. MG 3D Screening Mammo W/Cad Bilateral CC and MLO view(s) were taken. Prior study comparison: January 19, 2019, bilateral MG 3d screening mammo w/cad. January 17, 2018, bilateral MG 3d screening mammo w/cad. There are scattered fibroglandular densities. ASSESSMENT: Negative, BI-RAD 1 RECOMMENDATION: Routine screening mammogram of both breasts in 1 year.
== END | disposition home or self-care (01) ==
LOC: RADMAMWWP 09:58
PROVIDERS: ATTEND Family Medicine
DX: Z12.31 Encounter for screening mammogram for malignant neoplasm of breast (principal); Z78.0 Asymptomatic menopausal state
CPT/HCPCS: 77063; 77067

== ENCOUNTER → 2021-08-01 | Outpatient (CLI) | payer MEDICARE, OTHER ==
--- NOTE | 2021-08-01 08:10 | XR ---
EXAMINATION TYPE: XR skull complete DATE OF EXAM: 08/01/2021 COMPARISON: Same day CT brain study HISTORY: Fall injury with right orbital bruising and swelling. TECHNIQUE: Skull complete with Carreno and Mcconnell along with both lateral projections. FINDINGS: No acute displaced orbital wall fracture identified. No suspicious linear lucency in the sk ull to suggest acute fracture. IMPRESSION: As above.
--- NOTE | 2021-08-01 08:15 | CT ---
EXAMINATION TYPE: CT brain wo con DATE OF EXAM: 08/01/2021 HISTORY: Fall, bruised right eye. Headache. CT DLP: 1011 mGycm. Automated Exposure Control for Dose Reduction was Utilized. TECHNIQUE: CT scan of the head is performed without contrast. COMPARISON: CT brain January 29, 2020. FINDINGS: There is no acute intracranial hemorrhage or midline shift identified. There is mild diff use ventricular and sulcal prominence consistent with diffuse age-related cerebral atrophy. Ford-whit e matter differentiation is maintained. Scleral buckle right globe. Visualized paranasal sinuses are clear. The calvarium is intact. IMPRESSION: No acute intracranial hemorrhage or midline shift. There is mild diffuse age-related ce rebral atrophy noted.
== END | disposition home or self-care (01) ==
LOC: RADCTMAIN 06:55
PROVIDERS: ATTEND Family Medicine
DX: S09.90XA Unspecified injury of head, initial encounter (principal); G31.9 Degenerative disease of nervous system, unspecified; S05.11XA Contusion of eyeball and orbital tissues, right eye, initial encounter; W19.XXXA Unspecified fall, initial encounter
CPT/HCPCS: 70260; 70450

== ENCOUNTER → 2021-10-25 | Outpatient (CLI) | payer MEDICARE, OTHER ==
[~2021-10-25] MED LIST: REGADENOSON 0.4 MG/5 ML SYRINGE IV ONE
--- NOTE | 2021-10-25 12:40 | CA ---
Lexiscan Nuclear Stress Test Report Name: Sruthi Wilkinson Exam Date: 10/25/2021 09:31 Exam Location: [place] Stress Ht (in): 61 Wt (lb): 168 BSA: 1.75 Ordering Phys: Ranjit Finney DO Referring Phys: FINNEY Technologist: Karl Conte Age: 80 Gender: F : 1940 Procedure CPT: Indications: r53.83 Other Fatigue ICD-10 Codes: Patient History: Chest Pain and Shortness of breath Medications: LISINOPRIL,,,,,, AMLODIPINE,,,,,, ASA,,,,,, VITAMIN D,,,,,, CITOLOPRAM,,,,, Meds past 24 hrs: Pretest Chest Pain: STRESS TEST Lexiscan Protocol Exercise Duration (min:sec): 01:[address] Depressions (mm): Angina Score: Garnett Score: Resting HR (bpm): 66 Peak HR (bpm): 92 Resting BP (mmHg): 141 / 79 Peak BP (mmHg): 169 / 71 MPHR: 141 Target HR: 120 % MPHR: 65 METS: 1.0 Total Dose: Peak Dose: Atropine: Double Product: 81237 BP Response: Stress Termination: INFUSION COMPLETE Stress Symptoms: NO SYMPTOMS Stress Summary: ECG ANALYSIS Resting ECG: Stress ECG: CONCLUSIONS At baseline EKG showed normal sinus rhythm, normal axis, T-wave inversion the 3, P3, minimal ST depressions V4 -V6. Patient recieved IV infusion of Lexiscan 0.4mg and at peak infusion EKG showed no significant change from baseline. Conclusions: 1. Nondiagnostic stress EKG portion secondary baseline EKG abnormalities. 2. Nuclear imaging to be reported separately. Dr. Agus Garcia DO (Electronically Signed) Final Date: 25 October 2021 12:40
--- NOTE | 2021-10-25 13:35 | NM ---
EXAMINATION TYPE: NM stress lexiscan cardiolite DATE OF EXAM: 10/25/2021 COMPARISON: Previous exam 07/05/2014 HISTORY: R53.83 , chest pain TECHNIQUE: After the intravenous administration of 9.7 mCi Tc 99m Sestamibi - Cardiolite resting SPE CT images acquired 45 minutes post injection. The patient received 0.4mg Lexiscan, 25.8 mCi Tc 99m Sestamibi - Stress images obtained [address] injection FINDINGS: Review of stress and rest SPECT images demonstrates some mild decreased uptake along the inferior wal l left ventricle on stress as compared to rest images towards the cardiac apex. Gated analysis shows normal wall motion with an estimated left ventricular ejection fraction of 72 %. IMPRESSION: Pharmacologically induced left ventricular myocardial ischemia, consider correlation with echocardiog raphic studies for elevated ejection fraction A Yellow level critical message alert has been initiated for Ranjit Jessica DO via the [facility] Critical Results System on 10/25/2021 1:33 PM. This message alert has been sent to Ranjit bowden DO via the preferences provided by the clinician for the receipt of Radiology Critical Findings. Message ID [id number].
== END | disposition home or self-care (01) ==
LOC: RADNMMAIN 07:42
PROVIDERS: ATTEND Family Medicine
DX: R94.31 Abnormal electrocardiogram [ECG] [EKG] (principal)
CPT/HCPCS: 93017; 78452; A9500; J2785

== ENCOUNTER → 2021-11-22 | Outpatient (CLI) | payer MEDICARE, OTHER ==
[2021-11-22 14:48] LABS: HCT 42.4 % (37.2-46.3); HGB 13.2 g/dL (12.0-15.0); MCH 28.1 pg (27.0-32.0); MCHC 31.1 g/dL (32.0-37.0); MCV 90.4 fL (80.0-97.0); Mean Platelet Volume 10.8 fL (9.5-12.2); NRBC Per 100 WBC 0 /100 WBCS (0.0-0.0); Platelet Count 299 X 10*3/uL (140-440); RBC 4.69 X 10*6/uL (4.10-5.20); RDW 14.1 % (11.5-14.5)
[2021-11-22 16:10] LABS: African American GFR (CKD) 49.4 (60.0-200.0); Anion Gap 9.1 mmol/L (10.00-18.00); Blood Urea Nitrogen 20.6 mg/dL (9.0-27.0); Carbon Dioxide 27.9 mmol/L (20.0-27.5); Non-African American GFR(CKD) 42.6 (60.0-200.0)
== END | disposition home or self-care (01) ==
LOC: LABPAT 09:33
PROVIDERS: ATTEND Internal Medicine Interventional Cardiology
DX: Z01.812 Encounter for preprocedural laboratory examination (principal); E87.1 Hypo-osmolality and hyponatremia; R94.39 Abnormal result of other cardiovascular function study
CPT/HCPCS: 36415; 80051; 82565; 84520; 85027

== ENCOUNTER 2021-11-28 06:05 | Day surgery (SDC) | payer MEDICARE, OTHER ==
[~2021-11-28 06:05] MED LIST changes: +ALPRAZolam 0.25 MG TAB PO PRN; +ALPRAZolam 0.5 MG TAB PO PRN; +ASPIRIN 325 MG TAB PO STA; +ATORVASTATIN 80 MG TAB PO STA; +NITROGLYCERIN SL TABS 0.4 MG TAB SUBLINGUAL PRN; -REGADENOSON 0.4 MG/5 ML SYRINGE IV ONE; +SODIUM CHLORIDE 0.9% 1,000 ML in EMPTY BAG 1 BAG IV SCH
[2021-11-28] MEDS ORDERED: HEPARIN SODIUM,PORCINE 10,000 UNIT in SODIUM CHLORIDE 0.9% 1,000 ML IRRIGATION PRN (07:00)
[2021-11-28] MEDS ORDERED: HEPARIN SODIUM,PORCINE 2,500 UNIT in SODIUM CHLORIDE 0.9% 250 ML IRRIGATION PRN (07:00)
[2021-11-28 07:05] VITALS: RESP 18; TEMP 97.9
[2021-11-28] MEDS ORDERED: HEPARIN SODIUM 1,000 UN/ML (10ML VL) ONE (09:16)
[2021-11-28] MEDS ORDERED: fentaNYL (PF) 50 MCG/ML 2 ML AMP ONE (09:16)
[2021-11-28] MEDS ORDERED: fentaNYL (PF) 50 MCG/ML 2 ML AMP IVP ONE (09:30)
[2021-11-28] MEDS ORDERED: LIDOCAINE 1% INJ 10MG/ML (30 ML VIAL-PF) SQ ONE (09:32)
[2021-11-28] MEDS ORDERED: VERAPAMIL SYRINGE (5 MG/10 ML) INTRAARTER ONE (09:34)
[2021-11-28] MEDS ORDERED: HEPARIN SODIUM 1,000 UN/ML (10ML VL) IV ONE (09:39)
[2021-11-28] MEDS ORDERED: IOPAMIDOL-370 125ML BTL INJ ONE (09:45)
[2021-11-28] MEDS ORDERED: RX INFO: IV CONTRAST WAS GIVEN 1 EACH MISC MISCELLANE PRN (09:52)
--- NOTE | 2021-11-28 09:57 | P.CARDCATH ---
Date of Procedure: 11/28/21 Description of Procedure: Cardiac Catheterization: The patient is an 81-year-old female with known history of hypertension and progressive symptoms of fatigue and dyspnea, had an abnormal MPI with inferior wall ischemia Recommendations were made regarding cardiac catheterization, the risks and the complications were discussed with the patient who is in full understanding and agreement. 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 Using Xylocaine Anesthesia and Seldinger technique, a 6-Arabic sheath was introduced in the right radial artery . Subsequently, selective coronary angiography was performed using a 5-Arabic 3.5 bend Clinton catheter. Multiple views of the coronary artery including hemiaxial views were obtained. The 5-Arabic Pigtail catheter was used to cross the aortic valve and LVEDP was calculated. Following that, catheter and sheath were removed. Hemostasis was obtained with deployment of TR band . There was no immediate complication. Patient was returned to room in stable condition. Of note, the patient received a total of 4000 units of intravenous heparin as well as intra-arterial verapamil. Findings: Left main: This is a short sized vessel, bifurcating into LAD and left circumflex, left main has no high-grade stenosis LAD: This is a large size vessel, reaching to the apex, giving rise to a large diagonal branch, the LAD and its branches have no obstructive disease Left circumflex: This is a large nondominant vessel giving rise to a large obtuse marginal branch, the left circumflex and its branches have no obstructive disease RCA: This is a dominant vessel, bifurcating into PDA and PLV, the RCA has no evidence of high-grade Left Ventriculogram: Not performed Hemodynamics: He was no gradient across the aortic valve, LVEDP was 14-16 mmHg Conclusion: 1. Normal coronary arteries 2. Right dominance Recommendations: Recommended to continue medical therapy with the aggressive coronary risk modification initiated. The findings and the recommendations were discussed with the patient and the family and they were in full understanding and agreement. Duration of sedation is 16 minutes.
[2021-11-28] MEDS ORDERED: SODIUM CHLORIDE 0.9% 1,000 ML IV SCH (10:00)
[2021-11-28 13:53] VITALS: BP 138/83; PULSE 70
[2021-11-28] MEDS ORDERED: lisinopriL 20 MG TAB PO SCH (21:00)
[2021-11-28] MEDS ORDERED: ASPIRIN 81 MG PO SCH (21:00)
[2021-11-28] MEDS ORDERED: amLODIPine 2.5 MG TAB PO SCH (21:00)
[2021-11-29] MEDS ORDERED: CITALOPRAM HYDROBROMIDE 20 MG TAB PO SCH (09:00)
== END 2021-11-28 14:10 | disposition home or self-care (01) ==
LOC: CATHCVL 06:05
PROVIDERS: ATTEND Internal Medicine Interventional Cardiology
DX: R94.39 Abnormal result of other cardiovascular function study (principal); R06.09 Other forms of dyspnea; I10 Essential (primary) hypertension; F17.210 Nicotine dependence, cigarettes, uncomplicated; Z82.49 Family history of ischemic heart disease and other diseases of the circulatory system; Z88.0 Allergy status to penicillin; Z90.49 Acquired absence of other specified parts of digestive tract; Z79.82 Long term (current) use of aspirin; Z79.899 Other long term (current) drug therapy
CPT/HCPCS: 93458; 87635; C1769; C1894; J2001; J3010; J1644; Q9967

== ENCOUNTER → 2022-03-07 | Outpatient (CLI) | payer MEDICARE, OTHER ==
--- NOTE | 2022-03-07 13:43 | MM ---
Reason for Exam: Screening (asymptomatic). Last screening mammogram was performed 12 month(s) ago. Patient History: Menarche at age 12. First Full-Term at age 18. Postmenopausal. Patient used Progesterone for 5 years. Patient used Hormonal Contraceptives for 12 years. Risk Values: Tessy 5 year model risk: 1.3%. NCI Lifetime model risk: 2.0%. Prior Study Comparison: 01/17/2018 Bilateral Screening Mammogram, [facility]. 01/19/2019 Bilateral Screening Mammogram, [facility]. 02/16/2021 Bilateral Screening Mammogram, [facility]. Tissue Density: The breast tissue is heterogeneously dense. This may lower the sensitivity of mammography. Findings: Analyzed By CAD. There is no suspicious group of microcalcifications or new suspicious mass in either breast. Overall Assessment: Benign, BI-RAD 2 Management: Screening Mammogram of both breasts in 1 year. A clinical breast exam by your physician is recommended on an annual basis and results should be correlated with mammographic findings. Electronically signed and approved by: Oli Caballero M.D. Radiologis
== END | disposition home or self-care (01) ==
LOC: RADMAMWWP 11:17
PROVIDERS: ATTEND Family Medicine
DX: Z12.31 Encounter for screening mammogram for malignant neoplasm of breast (principal); Z78.0 Asymptomatic menopausal state
CPT/HCPCS: 77063; 77067

== ENCOUNTER → 2022-09-25 | Outpatient (CLI) | payer MEDICARE, OTHER ==
--- NOTE | 2022-09-25 12:58 | US ---
EXAMINATION TYPE: US venous doppler duplex LE RT DATE OF EXAM: 09/25/2022 12:30 PM COMPARISON: NONE CLINICAL INDICATION: Female, 81 years old with history of R60.0 LOCALIZED EDEMA; Right leg edema and pain SIDE PERFORMED: Right TECHNIQUE: The lower extremity deep venous system is examined utilizing real time linear array sonog blanca with graded compression, doppler sonography and color-flow sonography. VESSELS IMAGED: Common Femoral Vein Deep Femoral Vein Greater Saphenous Vein * Femoral Vein Popliteal Vein Small Saphenous Vein * Proximal Calf Veins (* superficial vessels) Right Leg: Negative for DVT IMPRESSION: No evidence for DVT within the right lower extremity imaged from the groin to the upper calf.
== END | disposition home or self-care (01) ==
LOC: RADUSWWP 12:28
PROVIDERS: ATTEND Family Medicine
DX: R60.0 Localized edema (principal)

== ENCOUNTER → 2023-01-09 | Outpatient (CLI) | payer MEDICARE, OTHER ==
[2023-01-09 12:03] LABS: Appearance,Urine Clear (Clear); Bilirubin,Urine Negative (Negative); Blood,Urine Negative (Negative); Color,Urine Yellow (Yellow); Ketones,Urine Negative (Negative); Nitrite,Urine Negative (Negative); PH, Urine 6.5; Specific Gravity,Urine 1.015 (1.001-1.030)
[2023-01-09 12:09] LABS: Bacteria,Urine None Seen (None Seen)
[2023-01-09 13:53] LABS: HCT 40.8 % (37.2-46.3); HGB 12.9 d/dL (12.0-15.0); MCH 28.6 pg (27.0-32.0); MCHC 31.6 d/dL (32.0-37.0); MCV 90.5 FL (80.0-97.0); Mean Platelet Volume 11.1 FL (9.5-12.2); NRBC Per 100 WBC 0 X 10*3/uL (0.00-0.01); Platelet Count 284 X 10*3/uL (140-440); RBC 4.51 X 10*6/uL (4.10-5.20); RDW 13.5 % (11.5-14.5); WBC 5.76 X 10*3/uL (4.50-10.00)
[2023-01-09 13:58] LABS: Immunoglobulin M 69.6 mg/dL (40.0-280.0)
[2023-01-09 14:03] LABS: % Iron Saturation 27.41 (12.00-45.00); ALT 15 U/L (8-44); AST 18 U/L (13-35); Albumin 4.2 d/dL (3.8-4.9); Albumin/Globulin Ratio 1.68 Ratio (1.60-3.17); Alkaline Phosphatase 94 U/L (41-126); BUN/Creat Ratio 19.73 Ratio (12.00-20.00); Blood Urea Nitrogen 21.7 mg/dL (9.0-27.0); Calcium 9.4 mg/dL (8.7-10.3); Chloride 102 mmol/L (96-109); Ferritin 60.9 ng/mL (10.0-291.0); Globulin 2.5 d/dL (1.6-3.3); Glucose 90 mg/dL (70-110); Iron 91 UG/DL (50-170); Phosphorus 3.6 mg/dL (2.4-5.1); Potassium 4.7 mmol/L (3.5-5.5); Sodium 141 mmol/L (135-145); Total Bilirubin 0.5 mg/dL (0.3-1.2); Total Iron Binding Capacity 332 UG/DL (228-460); Total Protein 6.7 d/dL (6.2-8.2); Uric Acid 6.2 mg/dL (2.9-7.7)
[2023-01-09 14:55] LABS: Free Kappa Lt Chain Qnt, Serum 2.41 mg/dL (0.33-1.94); Free Lambda Lt Chain Qnt, Seru 1.54 mg/dL (0.57-2.63)
== END | disposition home or self-care (01) ==
LOC: LABWHC1 07:30
PROVIDERS: ATTEND Internal Medicine
DX: N25.81 Secondary hyperparathyroidism of renal origin (principal); N18.32 Chronic kidney disease, stage 3b; D63.1 Anemia in chronic kidney disease; N39.0 Urinary tract infection, site not specified; E55.9 Vitamin D deficiency, unspecified; M10.9 Gout, unspecified; R80.9 Proteinuria, unspecified
CPT/HCPCS: 36415; 80053; 81001; 82043; 82306; 82570; 82728; 83540; 83550; 83735; 83883; 83970; 84100; 84550; 85027; 86334

== ENCOUNTER → 2023-06-12 | Outpatient (CLI) | payer MEDICARE, OTHER ==
[2023-06-12 11:34] LABS: HCT 39.5 % (37.2-46.3); HGB 12.6 g/dL (12.0-15.0); MCHC 31.9 g/dL (32.0-37.0); Mean Platelet Volume 10.2 FL (9.5-12.2); NRBC Per 100 WBC 0 X 10*3/uL (0.00-0.01); Platelet Count 264 X 10*3/uL (140-440); RBC 4.34 X 10*6/uL (4.10-5.20); RDW 13.8 % (11.5-14.5); WBC 5.76 X 10*3/uL (4.50-10.00)
[2023-06-12 12:16] LABS: % Iron Saturation 17.14 (12.00-45.00); ALT 12 U/L (8-44); AST 19 U/L (13-35); Albumin 4.1 g/dL (3.8-4.9); Albumin/Globulin Ratio 1.71 Ratio (1.60-3.17); Alkaline Phosphatase 84 U/L (41-126); Blood Urea Nitrogen 18.4 mg/dL (9.0-27.0); Calcium 9.8 mg/dL (8.7-10.3); Carbon Dioxide 26.9 mmol/L (21.6-31.8); Chloride 102 mmol/L (96-109); Ferritin 62.7 ng/mL (10.0-291.0); Globulin 2.4 g/dL (1.6-3.3); Glucose 109 mg/dL (70-110); Iron 54 UG/DL (50-170); Magnesium 1.9 mg/dL (1.5-2.4); Phosphorus 3.5 mg/dL (2.4-5.1); Potassium 4.6 mmol/L (3.5-5.5); Sodium 139 mmol/L (135-145); Total Bilirubin 0.4 mg/dL (0.3-1.2); Total Iron Binding Capacity 315 UG/DL (228-460); Total Protein 6.5 g/dL (6.2-8.2); Uric Acid 5.1 mg/dL (2.9-7.7)
[2023-06-12 17:13] LABS: Appearance,Urine Clear (Clear); Bilirubin,Urine Negative (Negative); Blood,Urine Negative (Negative); Color,Urine Yellow (Yellow); Ketones,Urine Negative (Negative); Nitrite,Urine Negative (Negative); PH, Urine 6.5; Specific Gravity,Urine 1.016 (1.001-1.030)
[2023-06-12 17:30] LABS: Bacteria,Urine None Seen (None Seen)
== END | disposition home or self-care (01) ==
LOC: LABWHC1 08:10
PROVIDERS: ATTEND Nurse Practitioner Family
DX: E55.9 Vitamin D deficiency, unspecified (principal); N39.0 Urinary tract infection, site not specified; N25.81 Secondary hyperparathyroidism of renal origin; M10.9 Gout, unspecified; N18.32 Chronic kidney disease, stage 3b; D63.1 Anemia in chronic kidney disease
CPT/HCPCS: 36415; 80053; 81001; 82043; 82306; 82570; 82728; 83540; 83550; 83735; 83970; 84100; 84550; 85027

== ENCOUNTER → 2023-09-11 | Outpatient (CLI) | payer MEDICARE, OTHER ==
[2023-09-11 10:56] LABS: Creatinine,Urine Random 226.1 mg/dL; Protein/Creatinine Ratio,Urine 0.287
[2023-09-11 16:25] LABS: HCT 39.6 % (37.2-46.3); HGB 12.9 g/dL (12.0-15.0); MCH 28.9 pg (27.0-32.0); MCHC 32.6 g/dL (32.0-37.0); MCV 88.6 FL (80.0-97.0); Mean Platelet Volume 10.6 FL (9.5-12.2); NRBC Per 100 WBC 0 X 10*3/uL (0.00-0.01); Platelet Count 297 X 10*3/uL (140-440); RBC 4.47 X 10*6/uL (4.10-5.20); RDW 13.4 % (11.5-14.5); WBC 6.09 X 10*3/uL (4.50-10.00)
[2023-09-11 17:11] LABS: % Iron Saturation 22.52 (12.00-45.00); ALT 14 U/L (8-44); AST 24 U/L (13-35); Albumin 4.4 g/dL (3.8-4.9); Albumin/Globulin Ratio 1.83 Ratio (1.60-3.17); Alkaline Phosphatase 96 U/L (41-126); BUN/Creat Ratio 18.27 Ratio (12.00-20.00); Blood Urea Nitrogen 20.1 mg/dL (9.0-27.0); Calcium 9.8 mg/dL (8.7-10.3); Carbon Dioxide 26.7 mmol/L (21.6-31.8); Chloride 100 mmol/L (96-109); Ferritin 81.1 ng/mL (10.0-291.0); Globulin 2.4 g/dL (1.6-3.3); Glucose 110 mg/dL (70-110); Iron 75 UG/DL (50-170); Magnesium 1.8 mg/dL (1.5-2.4); Phosphorus 3.4 mg/dL (2.4-5.1); Potassium 4.6 mmol/L (3.5-5.5); Sodium 138 mmol/L (135-145); Total Bilirubin 0.4 mg/dL (0.3-1.2); Total Iron Binding Capacity 333 UG/DL (228-460); Total Protein 6.8 g/dL (6.2-8.2); Uric Acid 5.9 mg/dL (2.9-7.7)
[2023-09-11 17:19] LABS: Anti-DNA, DS unit <1.0 IU/mL; DNA Double-Stranded Negative (Negative)
[2023-09-11 17:28] LABS: Appearance,Urine Cloudy (Clear); Bilirubin,Urine Negative (Negative); Blood,Urine Negative (Negative); Color,Urine Dark Yellow (Yellow); Ketones,Urine Trace (Negative); Nitrite,Urine Negative (Negative); PH, Urine 5.5; Specific Gravity,Urine 1.017 (1.001-1.030)
[2023-09-11 17:51] LABS: Bacteria,Urine None Seen (None Seen); Calcium Oxalate Crystals,Urine Present (None Seen)
[2023-09-12 13:38] LABS: C-ANCA <1:20 Titer (<1:20)
[2023-09-12 15:32] LABS: Free Kappa Lt Chain Qnt, Serum 2.45 mg/dL (0.33-1.94); Free Lambda Lt Chain Qnt, Seru 1.52 mg/dL (0.57-2.63)
[2023-09-13 00:15] LABS: Total Protein 24 Hour,Urine 193.4 mg/24Hr (0.0-165.0); Total Volume 24 Hour,Urine 2975 mL
== END | disposition home or self-care (01) ==
LOC: LABWHC1 09:17
PROVIDERS: ATTEND Nurse Practitioner Family
DX: N25.81 Secondary hyperparathyroidism of renal origin (principal); N18.32 Chronic kidney disease, stage 3b; D63.1 Anemia in chronic kidney disease; N39.0 Urinary tract infection, site not specified; E55.9 Vitamin D deficiency, unspecified; M10.9 Gout, unspecified; R80.9 Proteinuria, unspecified
CPT/HCPCS: 36415; 80053; 81001; 81050; 82043; 82306; 82570; 82728; 83516; 83540; 83550; 83735; 83883; 83970; 84100; 84156; 84166; 84550; 85027; 86038; 86160; 86162; 86225; 86255; 86334

== ENCOUNTER 2023-12-04 11:40 | Day surgery (SDC) | payer MEDICARE, OTHER ==
[2023-12-04] MEDS: LACTATED RINGERS 1,000 ML IV ONE (12:37)
[2023-12-04 13:03] VITALS: TEMP 97
[2023-12-04] MEDS ORDERED: LIDOCAINE 1% INJ 10MG/ML (20 ML MDV) ONE (13:18)
[2023-12-04] MEDS ORDERED: PROPOFOL 10 MG/ML 20 ML VIAL IV ONE (13:18)
--- NOTE | 2023-12-04 13:36 | P.PCN ---
Date of Procedure: 12/04/23 Procedure(s) Performed: BRIEF HISTORY: Patient is a 83-year-old pleasant white female scheduled for an elective colonoscopy as a part of screening for colorectal neoplasia. PROCEDURE PERFORMED: Colonoscopy. PREOPERATIVE DIAGNOSIS: Screening for colon cancer. IV sedation per Anesthesia. PROCEDURE: After informed consent was obtained, the patient, was brought into the endoscopy unit. IV sedation was administered by Anesthesia under continuous monitoring. Digital rectal examination was normal. Initially the Olympus CF-160 flexible video pediatric colonoscope was then inserted in the rectum, gradually advanced into the cecum without any difficulty. Careful examination was performed as the scope was gradually being withdrawn. Ileocecal valve and the appendiceal orifice were visualized and appeared normal. Prep was excellent. Mucosa of the cecum, ascending colon, transverse colon, descending colon, sigmoid colon, and rectum appeared normal. Retroflexion was performed in the rectum and no lesions were seen. The patient tolerated the procedure well. IMPRESSION: Normal-appearing colon from rectum to cecum with no evidence of colorectal neoplasia Scattered sigmoid diverticulosis. RECOMMENDATIONS: Findings of this examination were discussed with the patient as well as her family.. She was advised to be in high-fiber diet and take fiber supplements on a regular basis.
[2023-12-04] MEDS ORDERED: LIDOCAINE 1% (10MG/ML) FOR IV START INTRADERMA PRN (13:51)
[2023-12-04] MEDS ORDERED: LACTATED RINGERS 1,000 ML IV SCH (13:51)
[2023-12-04 13:56] VITALS: BP 168/79; PULSE 69; RESP 15
== END 2023-12-04 14:15 | disposition home or self-care (01) ==
LOC: ORWHC2ENDO 11:40
PROVIDERS: ATTEND Internal Medicine Gastroenterology
DX: Z12.11 Encounter for screening for malignant neoplasm of colon (principal); K57.30 Diverticulosis of large intestine without perforation or abscess without bleeding; I10 Essential (primary) hypertension; Z88.0 Allergy status to penicillin; Z90.49 Acquired absence of other specified parts of digestive tract; Z79.899 Other long term (current) drug therapy

== ENCOUNTER → 2024-03-03 | Outpatient (CLI) | payer MEDICARE, OTHER ==
--- NOTE | 2024-03-03 09:47 | US ---
EXAMINATION TYPE: US kidneys/renal and bladder DATE OF EXAM: 03/03/2024 COMPARISON: CT abdomen and pelvis 09/25/2017 CLINICAL INDICATION: Female, 83 years old with history of N18.31 CHRONIC KIDNEY DISEASE, STAGE 3A; Ab normal labs TECHNIQUE: Grayscale imaging of the bilateral kidneys and urinary bladder: FINDINGS: EXAM MEASUREMENTS: Right Kidney: 7.7 x 3.8 x 4.2 cm Left Kidney: 8.4 x 3.5 x 4.3 cm Right Kidney: Slightly echogenic. Upper lateral anechoic lesion = 1.3 x 1.0 x 1.0 cm Left Kidney: Appears lobular. Upper lateral anechoic lesion = 0.7 x 0.7 x 0.8 cm Bladder: mildly distended Bilateral Jets seen There is no evidence for hydronephrosis at this point in time. No nephrolithiasis is seen. Bilateral renal simple cysts. Somewhat lobulated appearance left kidney. Corticomedullary differentiation is m aintained bilaterally. No significant cortical thinning identified. The urinary bladder is anechoic a nd only mildly distended. IMPRESSION: No hydronephrosis or nephrolithiasis. [facility], , 03/03/2024 9:45 AM
== END | disposition home or self-care (01) ==
LOC: RADUSWWP 07:54
PROVIDERS: ATTEND Internal Medicine
DX: N18.31 Chronic kidney disease, stage 3a (principal); N28.1 Cyst of kidney, acquired
CPT/HCPCS: 76770

== ENCOUNTER → 2024-03-03 | Outpatient (CLI) | payer MEDICARE, OTHER ==
[2024-03-03 15:43] LABS: Ferritin 92.6 ng/mL (10.0-291.0); Uric Acid 4.9 mg/dL (2.9-7.7)
[2024-03-03 15:46] LABS: % Iron Saturation 30.16 (12.00-45.00); ALT 13 U/L (8-44); AST 22 U/L (13-35); Albumin 4.1 g/dL (3.8-4.9); Albumin/Globulin Ratio 1.58 Ratio (1.60-3.17); Alkaline Phosphatase 100 U/L (41-126); Blood Urea Nitrogen 19.9 mg/dL (9.0-27.0); Carbon Dioxide 26.3 mmol/L (21.6-31.8); Chloride 94 mmol/L (96-109); Globulin 2.6 g/dL (1.6-3.3); Glucose 95 mg/dL (70-110); Iron 95 UG/DL (50-170); Magnesium 1.7 mg/dL (1.5-2.4); Phosphorus 3.4 mg/dL (2.4-5.1); Potassium 4.3 mmol/L (3.5-5.5); Sodium 131 mmol/L (135-145); Total Bilirubin 0.6 mg/dL (0.3-1.2); Total Iron Binding Capacity 315 UG/DL (228-460); Total Protein 6.7 g/dL (6.2-8.2)
[2024-03-03 17:22] LABS: Urine Creatinine 43.2 mg/dL (28.0-217.0)
== END | disposition home or self-care (01) ==
LOC: LABWHC1 08:24
PROVIDERS: ATTEND Internal Medicine
DX: N39.0 Urinary tract infection, site not specified (principal); N18.31 Chronic kidney disease, stage 3a; D63.1 Anemia in chronic kidney disease; E55.9 Vitamin D deficiency, unspecified; N25.81 Secondary hyperparathyroidism of renal origin; M10.9 Gout, unspecified; R80.9 Proteinuria, unspecified
CPT/HCPCS: 36415; 80053; 82043; 82306; 82570; 82728; 83540; 83550; 83735; 83970; 84100; 84550

== ENCOUNTER → 2024-03-11 | Outpatient (CLI) | payer MEDICARE, OTHER ==
[2024-03-11 13:29] LABS: HCT 38.4 % (34.0-46.0); HGB 12.2 gm/dL (11.4-16.0); MCH 28.9 pg (25.0-35.0); MCHC 31.9 g/dL (31.0-37.0); MCV 90.9 fL (80.0-100.0); Mean Platelet Volume 8.5; Platelet Count 278 k/uL (150-450); RBC 4.23 m/uL (3.80-5.40); RDW 13.5 % (11.5-15.5)
[2024-03-11 13:40] LABS: Appearance,Urine Clear (Clear); Bacteria,Urine Rare /hpf; Bilirubin,Urine Negative (Negative); Blood,Urine Negative (Negative); Color,Urine Yellow; Glucose,Urine (UA) Negative (Negative); Hyaline Casts,Urine 26 /lpf (0-2); Ketones,Urine Negative (Negative); Leukocyte Esterase,Urine Moderate (Negative); Mucus,Urine Few /hpf; Nitrite,Urine Negative (Negative); Protein,Urine 1+ (Negative); RBC,Urine <1 /hpf (0-5); Specific Gravity,Urine 1.017 (1.001-1.035); Squamous Epithelial Cell,Urine 1 /hpf (0-4); Urobilinogen,Urine <2.0 mg/dL (<2.0); WBC,Urine 7 /hpf (0-5)
== END | disposition home or self-care (01) ==
LOC: LABWHC1 13:06
PROVIDERS: ATTEND Internal Medicine
DX: E55.9 Vitamin D deficiency, unspecified (principal); D64.9 Anemia, unspecified; N39.0 Urinary tract infection, site not specified; N25.81 Secondary hyperparathyroidism of renal origin; N18.31 Chronic kidney disease, stage 3a; R80.9 Proteinuria, unspecified
CPT/HCPCS: 36415; 81001; 85027